=== PATIENT | female | born 1990 | race Caucasian/White ===

== ENCOUNTER → 2017-07-04 | Outpatient (CLI) | payer OTHER | END | disposition home or self-care (01) | LOC: C.PAPS 18:12 → MERGE 18:12 | PROVIDERS: ATTEND Obstetrics & Gynecology | DX: Z01.419 Encounter for gynecological examination (general) (routine) without abnormal findings (principal) ==

== ENCOUNTER → 2017-07-19 | Outpatient (CLI) | payer BC, OTHER ==
[2017-07-19 14:50] LABS: HEMATOCRIT 37.5 % (37-47); HEMOGLOBIN 12.1 g/dL (12.0-16.0); MEAN CELL VOLUME 88.9 fL (80-100); MEAN CORPUSCULAR HEMOGLOBIN 28.7 pg (25-34); MEAN CORPUSCULAR HGB CONC 32.3 g/dl (32-36); MEAN PLATELET VOLUME 11.7 fL (7.4-10.4); PLATELET COUNT 230 K/uL (130-400); RED CELL DISTRIBUTION WIDTH CV 14.3 % (11.5-14.5); RED CELL DISTRIBUTION WIDTH SD 46.6 fL (36.4-46.3); WHITE BLOOD COUNT 7.29 K/uL (4.8-10.8)
[2017-07-19 16:06] LABS: HEP C IGG 13 YRS+OLDER_RFLX NEG (NEG)
== END | disposition home or self-care (01) ==
LOC: C.LAB1850 12:50
PROVIDERS: ATTEND Specialist
DX: Z31.41 Encounter for fertility testing (principal); Z01.83 Encounter for blood typing; Z11.59 Encounter for screening for other viral diseases; Z11.3 Encounter for screening for infections with a predominantly sexual mode of transmission; Z11.4 Encounter for screening for human immunodeficiency virus [HIV]; Z13.0 Encounter for screening for diseases of the blood and blood-forming organs and certain disorders involving the immune mechanism

== ENCOUNTER → 2017-07-20 | Outpatient (CLI) | payer BC, OTHER ==
[2017-07-20 17:11] LABS: FOLLICLE STIMULAT HORMONE 9.09 IU/L; LUTEINIZING HORMONE 5.69 IU/L
== END | disposition home or self-care (01) ==
LOC: C.LAB1850 15:55
PROVIDERS: ATTEND Specialist
DX: Z31.41 Encounter for fertility testing (principal)

== ENCOUNTER → 2017-07-26 | Outpatient (CLI) | payer BC, OTHER ==
--- NOTE | 2017-07-26 11:59 | DIAGNOSTIC IMAGING REPORT ---
HYSTEROSALPINGOGRAM CLINICAL HISTORY: 26 years-old Female with FERTILITY TESTING. FLUOROSCOPY TIME: 0.6 minutes. 5 images. TECHNIQUE: Hysterosalpingogram performed in conjunction the [facility]. Radiology was present to provide fluoroscopy. FINDINGS: The endometrial canal appears normal in size and morphology. No endometrial contour abnormalities or filling defects. There is opacification of the fallopian tubes with bilateral spillage into the peritoneal cavity. IMPRESSION: 1. Normal morphologic appearance of the endometrial canal. 2. There is contrast spillage into the peritoneum bilaterally confirming bilateral fallopian tube patency. The above report was generated using voice recognition software. It may contain grammatical, syntax or spelling errors. Electronically signed by: Cl Jerome M.D. 07/26/2017 11:58 AM Dictated Date/Time: 07/26/2017 11:56 AM
--- NOTE | 2017-07-26 16:50 | OPERATIVE REPORT ---
DATE OF OPERATION: 07/26/2017 The patient is a 26-year-old multiparous white female who presents for hysterosalpingogram as part of her infertility workup. She received prophylactic doxycycline prior to the procedure: Lighted speculum was placed in the vagina. The cervix was prepped in the usual fashion with Betadine. The anterior lip of the cervix was grasped with a single tooth tenaculum. The Tucker's cannula was inserted into the cervical canal. Approximately 5 mL of radiopaque dye was instilled into the uterine cavity. There was free spill from both tubes and normal tubal architecture as well as uterine architecture. The patient tolerated the procedure well. I attest to the content of the Intraoperative Record and any orders documented therein. Any exception s are noted below.
== END | disposition home or self-care (01) ==
LOC: C.RAD 10:46
PROVIDERS: ATTEND Obstetrics & Gynecology
DX: Z31.41 Encounter for fertility testing (principal)